=== PATIENT | male | born 1995 | race African-American/Black ===

== ENCOUNTER 2019-12-15 18:25 | Emergency (ER) | payer BC ==
[~2019-12-15] VITALS: Ht 180.3 cm; Wt 77.3 kg
[2019-12-15] MEDS ORDERED: FLUORESCEIN SODIUM 1 MG STRIP OU ONE (19:15)
[2019-12-15] MEDS ORDERED: MOXIFLOXACIN HCL 0.5% 3 ML OPHTHALMIC SOLUTION OD ONE (19:45)
[2019-12-15 20:19] VITALS: BP 129/81
== END 2019-12-15 20:22 | disposition home or self-care (01) ==
LOC: EMS 18:27
DX: H10.9 Unspecified conjunctivitis (principal)